=== PATIENT | male | born 1960 | race Caucasian/White ===

== ENCOUNTER 2021-07-31 11:47 | Inpatient (IN) ==
[2021-07-31] MEDS ORDERED: Dexamethasone IV 4 MG/ML 5 ML VIAL (20 MG) IVPB ONE (12:13)
[2021-07-31] MEDS ORDERED: Albuterol/Ipratropium NEB.SOL (2.5/0.5 MG) 3 ML NEB.SOLN INH ONE (12:13)
[2021-07-31 12:36] LABS: ABS Basophils 0.1 10^3/ul (0-0.2); ABS Eosinophils 0.2 10^3/ul (0-0.6); ABS Lymphocytes 1.5 10^3/ul (1.0-4.8); ABS Neutrophils 7.6 10^3/ul (1.5-7.7); Eosinophil % 1.5 %; Hematocrit 39 % (42-52); Lymphocyte % 14.7 %; Mean Corpuscular HGB Conc 31 g/dL (31-36); Mean Corpuscular Hemoglobin 21 pg (27-31); Mean Corpuscular Volume 66 fL (80-94); Nucleated Red Blood Cells % 0.1; Platelet Count 213 10^3/uL (150-450); Red Blood Count 5.85 10^6 /uL (4.18-5.48); Red Cell Distribution Width 15 % (10-15); White Blood Count 10.3 10^3/uL (3.5-10.8)
[2021-07-31 13:09] LABS: Albumin/Globulin Ratio 1.5 (1-3); Globulin 2.6 g/dL (2-4); Potassium 4.3 mmol/L (3.5-5.0); Total Bilirubin 0.7 mg/dL (0.2-1.0); Total Protein 6.6 g/dL (6.4-8.9)
[2021-07-31 13:16] LABS: Hypochromasia 1+; Microcytosis 3+; Polychromasia 1+
[2021-07-31 13:17] LABS: Target Cells 1+
[2021-07-31 14:09] LABS: High Sensitivity Troponin 1 Hr 6 pg/mL (<20)
[2021-07-31] MEDS ORDERED: Albuterol/Ipratropium NEB.SOL (2.5/0.5 MG) 3 ML NEB.SOLN INH PRN (15:39)
[2021-07-31] MEDS ORDERED: Lactated Ringers 1000 ml BAG 1,000 ML IV ONE (16:41)
[2021-07-31] MEDS: Enoxaparin 40 MG/0.4 ML SYR SUBCUT SCH (16:52)
[2021-07-31 17:14] LABS: C Reactive Protein 9.54 mg/L (<8.01)
[2021-08-01 06:34] LABS: Hematocrit 33 % (42-52); Hemoglobin 10.4 g/dL (14.0-18.0); Mean Corpuscular HGB Conc 31 g/dL (31-36); Mean Corpuscular Hemoglobin 21 pg (27-31); Mean Corpuscular Volume 66 fL (80-94); Mean Platelet Volume 9.1 fL (7.4-10.4); Platelet Count 195 10^3/uL (150-450); Red Blood Count 5.03 10^6 /uL (4.18-5.48); Red Cell Distribution Width 15 % (10-15); White Blood Count 7.9 10^3/uL (3.5-10.8)
[2021-08-01 07:07] LABS: Calcium 8.8 mg/dL (8.6-10.3); Potassium 4.4 mmol/L (3.5-5.0); eGFR CKD-EPI 100.4 (>60)
[2021-08-01] MEDS: Mometasone/Formoter 200/5 MDI INH SCH ×3 (08:18→20:57)
[2021-08-01] MEDS: Cholecalciferol (VIT D3) 1,000 unit TAB PO SCH (08:36)
[2021-08-01] MEDS: Aspirin EC 81 mg TAB.EC (enteric coated) PO SCH (08:36)
[2021-08-01] MEDS: Nicotine PATCH 21 MG/24 HR PATCH TRANSDERM SCH (08:38)
[2021-08-01] MEDS: methylPREDNISolone SOD SUCC 40 mg/ml 1 ml VIAL IV SCH (08:38)
[2021-08-01] MEDS ORDERED: Albuterol/Ipratropium NEB.SOL (2.5/0.5 MG) 3 ML NEB.SOLN INH PRN (12:41)
[2021-08-01] MEDS: Albuterol/Ipratropium NEB.SOL (2.5/0.5 MG) 3 ML NEB.SOLN INH SCH ×2 (15:14→20:58)
[2021-08-01 17:01] LABS: Ferritin 37.7 ng/mL (24-336)
[2021-08-01] MEDS: Enoxaparin 40 MG/0.4 ML SYR SUBCUT SCH (17:08)
[2021-08-02] MEDS: Albuterol/Ipratropium NEB.SOL (2.5/0.5 MG) 3 ML NEB.SOLN INH SCH ×2 (07:30→11:52)
[2021-08-02] MEDS: Mometasone/Formoter 200/5 MDI INH SCH ×2 (07:34→19:45)
[2021-08-02] MEDS: Cholecalciferol (VIT D3) 1,000 unit TAB PO SCH (09:13)
[2021-08-02] MEDS: Aspirin EC 81 mg TAB.EC (enteric coated) PO SCH (09:13)
[2021-08-02] MEDS: methylPREDNISolone SOD SUCC 40 mg/ml 1 ml VIAL IV SCH ×2 (09:14→20:42)
[2021-08-02] MEDS: Nicotine PATCH 21 MG/24 HR PATCH TRANSDERM SCH (09:14)
[2021-08-02] MEDS ORDERED: Albuterol HFA INHALER 8 gm MDI INH PRN (11:56)
[2021-08-02] MEDS: Albuterol HFA INHALER 8 gm MDI INH SCH ×2 (12:41→19:44)
[2021-08-02] MEDS: Enoxaparin 40 MG/0.4 ML SYR SUBCUT SCH (15:20)
[2021-08-02] MEDS: Fluticasone NASAL SPRAY 50MCG 16 gm SPRAY BTL BOTH NARES SCH (19:21)
[2021-08-03] MEDS: Albuterol HFA INHALER 8 gm MDI INH SCH ×4 (01:55→19:01)
[2021-08-03 06:20] LABS: Calcium 9.1 mg/dL (8.6-10.3); Magnesium 2.2 mg/dL (1.9-2.7); Potassium 4.9 mmol/L (3.5-5.0); eGFR CKD-EPI 100.4 (>60)
[2021-08-03] MEDS: Mometasone/Formoter 200/5 MDI INH SCH ×2 (07:27→19:00)
[2021-08-03] MEDS: Cholecalciferol (VIT D3) 1,000 unit TAB PO SCH (08:28)
[2021-08-03] MEDS: Nicotine PATCH 21 MG/24 HR PATCH TRANSDERM SCH (08:28)
[2021-08-03] MEDS: Aspirin EC 81 mg TAB.EC (enteric coated) PO SCH (08:28)
[2021-08-03] MEDS: Fluticasone NASAL SPRAY 50MCG 16 gm SPRAY BTL BOTH NARES SCH (08:28)
[2021-08-03] MEDS: methylPREDNISolone SOD SUCC 40 mg/ml 1 ml VIAL IV SCH ×2 (08:28→20:15)
[2021-08-03] MEDS ORDERED: Iohexol 350 (CONTRAST) 500 ML MDV IV ONE (11:40)
[2021-08-03] MEDS: SPIRIVA Respimat (tiotropium) 2.5 mcg/inh Inhaler INH SCH (17:06)
[2021-08-03] MEDS: Enoxaparin 40 MG/0.4 ML SYR SUBCUT SCH (17:13)
[2021-08-04] MEDS: Albuterol HFA INHALER 8 gm MDI INH SCH ×4 (00:16→19:01)
[2021-08-04 06:54] LABS: Calcium 9.1 mg/dL (8.6-10.3); Magnesium 2.1 mg/dL (1.9-2.7); Potassium 4.4 mmol/L (3.5-5.0); eGFR CKD-EPI 87.2 (>60)
[2021-08-04 07:00] LABS: Hematocrit 37 % (42-52); Hemoglobin 11.2 g/dL (14.0-18.0); Mean Corpuscular HGB Conc 31 g/dL (31-36); Mean Corpuscular Hemoglobin 20 pg (27-31); Mean Corpuscular Volume 67 fL (80-94); Mean Platelet Volume 9.7 fL (7.4-10.4); Platelet Count 224 10^3/uL (150-450); Red Cell Distribution Width 15 % (10-15); White Blood Count 11.6 10^3/uL (3.5-10.8)
[2021-08-04] MEDS: SPIRIVA Respimat (tiotropium) 2.5 mcg/inh Inhaler INH SCH (07:23)
[2021-08-04] MEDS: Mometasone/Formoter 200/5 MDI INH SCH ×2 (07:23→19:01)
[2021-08-04] MEDS: Fluticasone NASAL SPRAY 50MCG 16 gm SPRAY BTL BOTH NARES SCH (09:17)
[2021-08-04] MEDS: Nicotine PATCH 21 MG/24 HR PATCH TRANSDERM SCH (09:17)
[2021-08-04] MEDS: Aspirin EC 81 mg TAB.EC (enteric coated) PO SCH (09:17)
[2021-08-04] MEDS: methylPREDNISolone SOD SUCC 40 mg/ml 1 ml VIAL IV SCH ×2 (09:18→21:42)
[2021-08-04] MEDS: Cholecalciferol (VIT D3) 1,000 unit TAB PO SCH (09:18)
[2021-08-04] MEDS ORDERED: Furosemide 40 mg/4 ml IV VIAL IV ONE (13:05)
[2021-08-04] MEDS ORDERED: methylPREDNISolone SOD SUCC 40 mg/ml 1 ml VIAL IV ONE (13:07)
[2021-08-04] MEDS ORDERED: COVID-19 VACCINE, MRNA(MODERNA)/PF 100 MCG/0.5 ML IM ONE (14:00)
[2021-08-04] MEDS ORDERED: Perflutren Lipid Microsphere 3 ML VIAL ONE (14:10)
[2021-08-04] MEDS: Enoxaparin 40 MG/0.4 ML SYR SUBCUT SCH (17:54)
[2021-08-05] MEDS: Albuterol HFA INHALER 8 gm MDI INH SCH ×3 (01:36→12:50)
[2021-08-05] MEDS: SPIRIVA Respimat (tiotropium) 2.5 mcg/inh Inhaler INH SCH ×2 (06:57→08:35)
[2021-08-05] MEDS: Mometasone/Formoter 200/5 MDI INH SCH (06:58)
[2021-08-05] MEDS: Cholecalciferol (VIT D3) 1,000 unit TAB PO SCH (10:17)
[2021-08-05] MEDS: methylPREDNISolone SOD SUCC 40 mg/ml 1 ml VIAL IV SCH (10:17)
[2021-08-05] MEDS: Aspirin EC 81 mg TAB.EC (enteric coated) PO SCH (10:17)
[2021-08-05] MEDS: Fluticasone NASAL SPRAY 50MCG 16 gm SPRAY BTL BOTH NARES SCH (10:18)
[2021-08-05] MEDS: Nicotine PATCH 21 MG/24 HR PATCH TRANSDERM SCH (10:18)
[2021-08-05 11:22] VITALS: BP 115/72
[2021-08-05] MEDS: Enoxaparin 40 MG/0.4 ML SYR SUBCUT SCH (18:12)
== END 2021-08-05 18:30 | disposition home or self-care (01) | DRG 190 ==
LOC: EDHOLD 11:47 → ED 11:47 → EDHOLD 19:04 → MED 20:13 → SUATTDRO 08-02 16:28
PROVIDERS: ADMIT Student in an Organized Health Care Education/Training Program; ATTEND Student in an Organized Health Care Education/Training Program

== ENCOUNTER 2024-02-19 11:54 | Inpatient (IN) ==
[2024-02-19 12:30] LABS: ABS Basophils 0.1 10^3/uL (0.0-0.1); ABS Eosinophils 0.2 10^3/uL (0.0-0.5); ABS Lymphocytes 2.2 10^3/uL (1.0-4.8); ABS Monocytes 0.5 10^3/uL (0.0-1.1); ABS Neutrophils 7.7 10^3/uL (1.5-7.6); ABS Nucleated RBC 0.03 10^3/ul; Eosinophil % 2.1 %; Hematocrit 41.2 % (38-53); Hemoglobin 12.8 g/dL (13.2-16.3); Lymphocyte % 20.6 %; Mean Corpuscular Hemoglobin 20.4 pg (27-33); Mean Corpuscular Hgb Conc 31.1 g/dL (31-36); Mean Corpuscular Volume 65.5 fL (80-97); Mean Platelet Volume 8.6 fL (7.5-11.2); Nucleated Red Blood Cells % 0.2 %/100WBC (0.0-0.8); Platelet Count 225 10^3/uL (150-450); Red Blood Count 6.29 10^6/uL (4.06-5.63); Red Cell Distribution Width 15.7 % (12-17); White Blood Count 10.6 10^3/uL (3.6-10.2)
[2024-02-19] MEDS: Albuterol 2.5mg/3 ml (0.083%) NEB.SOLN INH ONE (12:30)
[2024-02-19] MEDS: methylPREDNISolone SOD SUCC 125 mg 2 ML VIAL IV ONE (12:38)
[2024-02-19 12:45] LABS: INR 0.89 (0.85-1.14)
[2024-02-19 13:10] LABS: Albumin 4.3 g/dL (3.2-5.2); Albumin/Globulin Ratio 1.4 (1-3); Calcium 8.9 mg/dL (8.6-10.3); Creatinine, Serum 0.88 mg/dL (0.67-1.17); Globulin 3.1 g/dL (2-4); Potassium 5.3 mmol/L (3.5-5.0); Total Bilirubin 0.5 mg/dL (0.2-1.0); Total Protein 7.4 g/dL (6.4-8.9); eGFR CKD-EPI 95.4 (>60)
[2024-02-19 13:49] LABS: High Sensitivity Troponin 1 Hr 335 pg/mL (<20)
[2024-02-19] MEDS: Iohexol 350 (CONTRAST) 500 ML MDV IV ONE (14:21)
[2024-02-19 16:03] LABS: High Sensitivity Troponin 3 Hr 307 pg/mL (<20)
[2024-02-19 16:31] LABS: Ferritin 86.5 ng/mL (24-336)
[2024-02-19 16:34] LABS: Folate 7.11 ng/mL (5.90-24.80)
[2024-02-19] MEDS: Heparin DRIP 25,000 UNITS BAG 25,000 UNITS/250 ML BAG IV SCH (17:11)
[2024-02-19] MEDS: Heparin 5000 UNITS/ML 1 mL VIAL IV SCH (17:12)
[2024-02-19 18:50] LABS: ABS Basophils 0.1 10^3/uL (0.0-0.1); ABS Lymphocytes 0.5 10^3/uL (1.0-4.8); ABS Monocytes 0.1 10^3/uL (0.0-1.1); ABS Neutrophils 13.4 10^3/uL (1.5-7.6); ABS Nucleated RBC 0.03 10^3/ul; Eosinophil % 0.1 %; Hemoglobin 11.5 g/dL (13.2-16.3); Lymphocyte % 3.9 %; Mean Corpuscular Hemoglobin 19.8 pg (27-33); Mean Corpuscular Hgb Conc 30.3 g/dL (31-36); Mean Corpuscular Volume 65.3 fL (80-97); Mean Platelet Volume 9.2 fL (7.5-11.2); Nucleated Red Blood Cells % 0.2 %/100WBC (0.0-0.8); Platelet Count 247 10^3/uL (150-450); Red Blood Count 5.82 10^6/uL (4.06-5.63); Red Cell Distribution Width 15.4 % (12-17); White Blood Count 14.1 10^3/uL (3.6-10.2)
[2024-02-19] MEDS: Enoxaparin 40 MG/0.4 ML SYR SUBCUT SCH (19:21)
[2024-02-19] MEDS: Isosorbide Mononit ER 30mg TAB PO ONE (19:22)
[2024-02-19 19:41] LABS: Creatinine, Serum 0.75 mg/dL (0.67-1.17); eGFR CKD-EPI 100.1 (>60)
[2024-02-19] MEDS: Albuterol/Ipratropium NEB.SOL (2.5/0.5 MG) 3 ML NEB.SOLN INH PRN (23:38)
[2024-02-20 06:29] LABS: Albumin 3.6 g/dL (3.2-5.2); Albumin/Globulin Ratio 1.5 (1-3); Calcium 8.6 mg/dL (8.6-10.3); Creatinine, Serum 0.63 mg/dL (0.67-1.17); Direct Bilirubin 0.1 mg/dL (0.03-0.18); Globulin 2.4 g/dL (2-4); Indirect Bilirubin 0.4 mg/dL (0.3-1.0); Potassium 4.9 mmol/L (3.5-5.0); Total Bilirubin 0.5 mg/dL (0.2-1.0); eGFR CKD-EPI 105.6 (>60)
[2024-02-20 06:43] LABS: TSH Ultra Thyroid Stim Horm 0.43 mcIU/mL (0.34-5.60)
[2024-02-20 07:21] LABS: ABS Monocytes 0.3 10^3/uL (0.0-1.1); ABS Neutrophils 6.9 10^3/uL (1.5-7.6); ABS Nucleated RBC 0.01 10^3/ul; Hematocrit 33.1 % (38-53); Hemoglobin 10.5 g/dL (13.2-16.3); Lymphocyte % 12.3 %; Mean Corpuscular Hemoglobin 20.3 pg (27-33); Mean Corpuscular Hgb Conc 31.6 g/dL (31-36); Mean Corpuscular Volume 64.1 fL (80-97); Mean Platelet Volume 9.5 fL (7.5-11.2); Nucleated Red Blood Cells % 0.1 %/100WBC (0.0-0.8); Platelet Count 220 10^3/uL (150-450); Red Blood Count 5.17 10^6/uL (4.06-5.63); Red Cell Distribution Width 15.5 % (12-17); White Blood Count 8.2 10^3/uL (3.6-10.2)
[2024-02-20] MEDS: CMC:FLUTICAS/UMECLI/VILANT 200-62.5-25 MDI (NF) INH SCH (08:59)
[2024-02-20] MEDS: Sulfur Hexaflouride MICROSPHR 25 MG VIAL IV PRN (09:41)
[2024-02-20] MEDS: Isosorbide Mononit ER 30mg TAB PO SCH (19:46)
[2024-02-20] MEDS: Azithromycin 500 mg/250 ml NS 500 MG/250 ML BAG IVPB ONE (19:49)
[2024-02-20 20:02] LABS: High Sensitivity Troponin 1 Hr 155 pg/mL (<20)
[2024-02-21 05:56] LABS: Activated Partial Thrombo Time 68.5 seconds (26.0-38.0); INR 0.96 (0.85-1.14)
[2024-02-21 06:10] LABS: ABS Eosinophils 0.2 10^3/uL (0.0-0.5); ABS Lymphocytes 3.3 10^3/uL (1.0-4.8); ABS Monocytes 0.8 10^3/uL (0.0-1.1); ABS Neutrophils 6.3 10^3/uL (1.5-7.6); ABS Nucleated RBC 0.02 10^3/ul; Eosinophil % 1.6 %; Hematocrit 31.1 % (38-53); Hemoglobin 9.7 g/dL (13.2-16.3); Lymphocyte % 31.5 %; Mean Corpuscular Hgb Conc 31.2 g/dL (31-36); Mean Corpuscular Volume 64.1 fL (80-97); Mean Platelet Volume 9.2 fL (7.5-11.2); Nucleated Red Blood Cells % 0.2 %/100WBC (0.0-0.8); Platelet Count 198 10^3/uL (150-450); Red Blood Count 4.85 10^6/uL (4.06-5.63); Red Cell Distribution Width 15.4 % (12-17); White Blood Count 10.6 10^3/uL (3.6-10.2)
[2024-02-21 06:25] LABS: Calcium 8.1 mg/dL (8.6-10.3); Creatinine, Serum 0.65 mg/dL (0.67-1.17); Potassium 4.5 mmol/L (3.5-5.0); eGFR CKD-EPI 104.6 (>60)
[2024-02-21] MEDS: Pantoprazole VIAL 40 MG VIAL IV SCH (11:17)
[2024-02-21 16:13] LABS: HDL Cholesterol 49.6 mg/dL
[2024-02-21] MEDS ORDERED: Albuterol/Ipratropium NEB.SOL (2.5/0.5 MG) 3 ML NEB.SOLN ONE (17:32)
[2024-02-21] MEDS ORDERED: Phenylephrine 40 mcg/mL 10mL (400mcg) SYRINGE ONE (18:24)
[2024-02-21 20:10] LABS: Hemoglobin 9.6 g/dL (13.2-16.3)
[2024-02-21] MEDS: Azithromycin 250 MG in NS 0.9% 250 ml 250 ML IVPB SCH (21:07)
[2024-02-22 06:51] LABS: Hematocrit 30.6 % (38-53); Hemoglobin 9.5 g/dL (13.2-16.3); Mean Corpuscular Hemoglobin 20.4 pg (27-33); Mean Corpuscular Hgb Conc 31.1 g/dL (31-36); Mean Corpuscular Volume 65.5 fL (80-97); Mean Platelet Volume 8.8 fL (7.5-11.2); Platelet Count 188 10^3/uL (150-450); Red Blood Count 4.68 10^6/uL (4.06-5.63); Red Cell Distribution Width 15.4 % (12-17); White Blood Count 8.5 10^3/uL (3.6-10.2)
[2024-02-22 06:52] LABS: Calcium 8.2 mg/dL (8.6-10.3); Creatinine, Serum 0.65 mg/dL (0.67-1.17); Potassium 4.1 mmol/L (3.5-5.0); eGFR CKD-EPI 104.6 (>60)
[2024-02-22] MEDS: guaiFENesin 100 mg/5 ml LIQ unit dose cup PO ONE (08:38)
[2024-02-22] MEDS: Morphine 2 MG/ML SYRINGE IV ONE (15:42)
[2024-02-22] MEDS: Enoxaparin 40 MG/0.4 ML SYR SUBCUT SCH (15:44)
[2024-02-22 15:48] LABS: High Sensitivity Troponin 1 Hr 25 pg/mL (<20)
[2024-02-22 17:16] VITALS: BP 99/48
== END 2024-02-23 01:20 | disposition short-term general hospital (02) | DRG 281 ==
LOC: ED 11:54 → EDHOLD 11:54 → SUATTDRO 15:40 → OBSVTOIN 15:40 → EDHOLD 16:50 → MEDTELE 18:17
PROVIDERS: ADMIT Hospitalist; ATTEND Internal Medicine
PROC: O.GIEGD (2024-02-21 16:20)

== ENCOUNTER 2024-03-27 00:51 | Observation (INO) ==
[2024-03-27 01:24] LABS: Hematocrit 35.9 % (38-53); Mean Corpuscular Hgb Conc 30.8 g/dL (31-36); Mean Corpuscular Volume 64.9 fL (80-97); Mean Platelet Volume 9.1 fL (7.5-11.2); Platelet Count 213 10^3/uL (150-450); Red Blood Count 5.53 10^6/uL (4.06-5.63); White Blood Count 15.3 10^3/uL (3.6-10.2)
[2024-03-27 01:47] LABS: Albumin 3.9 g/dL (3.5-5.7); Albumin/Globulin Ratio 1.6 (1-3); Calcium 8.6 mg/dL (8.6-10.3); Creatinine, Serum 0.8 mg/dL (0.67-1.17); Globulin 2.4 g/dL (2-4); Potassium 4.7 mmol/L (3.5-5.0); Total Bilirubin 0.4 mg/dL (0.2-1.0); Total Protein 6.3 g/dL (6.4-8.9); eGFR CKD-EPI 98.2 (>60)
[2024-03-27] MEDS: Lactated Ringers 1000 ml BAG 1,000 ML IV ONE (02:08)
[2024-03-27 02:17] LABS: ABS Basophils 0.2 10^3/uL (0.0-0.1); ABS Eosinophils 0.2 10^3/uL (0.0-0.5); ABS Lymphocytes 1.9 10^3/uL (1.0-4.8); ABS Monocytes 1.3 10^3/uL (0.0-1.1); ABS Neutrophils 11.7 10^3/uL (1.5-7.6); ABS Nucleated RBC 0.02 10^3/ul; Anisocytosis 1+; Eosinophil % 1.6 %; Lymphocyte % 12.6 %; Microcytosis 3+; Nucleated Red Blood Cells % 0.1 %/100WBC (0.0-0.8)
[2024-03-27 02:41] LABS: High Sensitivity Troponin 1 Hr 7 pg/mL (<20)
[2024-03-27] MEDS: Albuterol/Ipratropium NEB.SOL (2.5/0.5 MG) 3 ML NEB.SOLN INH ONE (04:18)
[2024-03-27] MEDS ORDERED: Polyethylene Glycol 3350 17 GM PACKET PO PRN (05:00)
[2024-03-27] MEDS ORDERED: NF: Albuterol/Ipratropium RESP(NF) MDI (Combivent Respimat) INH PRN (05:03)
[2024-03-27] MEDS: Enoxaparin 40 MG/0.4 ML SYR SUBCUT SCH (05:37)
[2024-03-27 05:53] LABS: C Reactive Protein 11.19 mg/L (<8.01)
[2024-03-27] MEDS: Albuterol/Ipratropium NEB.SOL (2.5/0.5 MG) 3 ML NEB.SOLN INH PRN (06:37)
[2024-03-27] MEDS: CMCS: FLUTICAS/UMECLI/VILANT 200-62.5-25 MDI (NF) INH SCH (09:43)
[2024-03-28 03:24] LABS: High Sensitivity Troponin 1 Hr 8 pg/mL (<20)
[2024-03-28 05:56] LABS: Hematocrit 32.5 % (38-53); Hemoglobin 10.2 g/dL (13.2-16.3); Mean Corpuscular Hemoglobin 20.1 pg (27-33); Mean Corpuscular Hgb Conc 31.4 g/dL (31-36); Mean Platelet Volume 8.7 fL (7.5-11.2); Platelet Count 203 10^3/uL (150-450); Red Blood Count 5.07 10^6/uL (4.06-5.63); White Blood Count 11.9 10^3/uL (3.6-10.2)
[2024-03-28 06:18] LABS: High Sensitivity Troponin 3 Hr 8 pg/mL (<20)
[2024-03-28 09:05] LABS: Calcium 8.8 mg/dL (8.6-10.3); Creatinine, Serum 0.71 mg/dL (0.67-1.17); Potassium 4.7 mmol/L (3.5-5.0); eGFR CKD-EPI 101.8 (>60)
[2024-03-28] MEDS: cefTRIAXone 1 gm/50 mL D5W 1 GM/50 ML BAG IV SCH (15:44)
[2024-03-28] MEDS: Furosemide 40 mg/4 ml IV VIAL IV ONE (15:44)
[2024-03-28] MEDS: methylPREDNISolone SOD SUCC 40 mg/ml 1 ml VIAL IV SCH (21:14)
[2024-03-29 08:16] LABS: ABS Lymphocytes 1.1 10^3/uL (1.0-4.8); ABS Monocytes 0.6 10^3/uL (0.0-1.1); ABS Neutrophils 10.8 10^3/uL (1.5-7.6); ABS Nucleated RBC 0.01 10^3/ul; Hematocrit 33.8 % (38-53); Hemoglobin 10.4 g/dL (13.2-16.3); Lymphocyte % 8.5 %; Mean Corpuscular Hemoglobin 19.7 pg (27-33); Mean Corpuscular Hgb Conc 30.8 g/dL (31-36); Mean Corpuscular Volume 64.1 fL (80-97); Mean Platelet Volume 9.1 fL (7.5-11.2); Nucleated Red Blood Cells % 0.1 %/100WBC (0.0-0.8); Platelet Count 215 10^3/uL (150-450); Red Blood Count 5.28 10^6/uL (4.06-5.63); Red Cell Distribution Width 14.9 % (12-17); White Blood Count 12.5 10^3/uL (3.6-10.2)
[2024-03-29 08:20] LABS: Calcium 8.8 mg/dL (8.6-10.3); Creatinine, Serum 0.75 mg/dL (0.67-1.17); Magnesium 2.1 mg/dL (1.9-2.7); Potassium 4.6 mmol/L (3.5-5.0); eGFR CKD-EPI 100.1 (>60)
[2024-03-30] MEDS: Furosemide 20 mg/2 ml IV VIAL IV ONE (01:32)
[2024-03-30 07:08] LABS: ABS Basophils 0.1 10^3/uL (0.0-0.1); ABS Lymphocytes 0.2 10^3/uL (1.0-4.8); ABS Monocytes 0.9 10^3/uL (0.0-1.1); ABS Neutrophils 19.9 10^3/uL (1.5-7.6); ABS Nucleated RBC 0.02 10^3/ul; Hematocrit 33.4 % (38-53); Hemoglobin 10.4 g/dL (13.2-16.3); Lymphocyte % 1.1 %; Mean Corpuscular Hemoglobin 19.9 pg (27-33); Mean Corpuscular Hgb Conc 31.3 g/dL (31-36); Mean Corpuscular Volume 63.7 fL (80-97); Mean Platelet Volume 9.4 fL (7.5-11.2); Nucleated Red Blood Cells % 0.1 %/100WBC (0.0-0.8); Platelet Count 203 10^3/uL (150-450); Red Blood Count 5.24 10^6/uL (4.06-5.63); Red Cell Distribution Width 14.9 % (12-17); White Blood Count 21.1 10^3/uL (3.6-10.2)
[2024-03-30 07:21] LABS: Calcium 8.3 mg/dL (8.6-10.3); Creatinine, Serum 0.67 mg/dL (0.67-1.17); Magnesium 1.9 mg/dL (1.9-2.7); Potassium 4.2 mmol/L (3.5-5.0); eGFR CKD-EPI 103.6 (>60)
[2024-03-30] MEDS: Albuterol/Ipratropium NEB.SOL (2.5/0.5 MG) 3 ML NEB.SOLN INH SCH (10:46)
[2024-03-30] MEDS: Iohexol 350 (CONTRAST) 500 ML MDV IV ONE (16:31)
[2024-03-31 06:03] LABS: Hematocrit 33.8 % (38-53); Hemoglobin 10.5 g/dL (13.2-16.3); Mean Corpuscular Hemoglobin 19.9 pg (27-33); Red Blood Count 5.28 10^6/uL (4.06-5.63); White Blood Count 9.8 10^3/uL (3.6-10.2)
[2024-03-31 06:42] LABS: Calcium 8.4 mg/dL (8.6-10.3); Creatinine, Serum 0.63 mg/dL (0.67-1.17); Magnesium 2.3 mg/dL (1.9-2.7); Potassium 5.2 mmol/L (3.5-5.0); eGFR CKD-EPI 105.6 (>60)
[2024-03-31 07:43] LABS: ABS Lymphocytes 0.9 10^3/uL (1.0-4.8); ABS Monocytes 0.5 10^3/uL (0.0-1.1); ABS Neutrophils 8.4 10^3/uL (1.5-7.6); ABS Nucleated RBC 0.02 10^3/ul; Eosinophil % 0.1 %; Large Platelets Present; Mean Platelet Volume 9.1 fL (7.5-11.2); Nucleated Red Blood Cells % 0.2 %/100WBC (0.0-0.8); Platelet Count 178 10^3/uL (150-450)
[2024-03-31] MEDS: Al Hydrox/Mg Hydrox/Simet LIQ 30 ML UDC PO PRN (11:03)
[2024-03-31] MEDS: Ondansetron 4 mg VIAL 2 MG/ML 2 ml VIAL IV PRN (11:03)
[2024-03-31 14:07] VITALS: BP 110/65
== END 2024-03-31 14:19 | disposition home or self-care (01) ==
LOC: ED 00:51 → EDHOLD 00:51 → SUATTDRO 05:00 → MEDTELE 14:06
PROVIDERS: ADMIT Internal Medicine; ATTEND Internal Medicine